=== PATIENT | female | born 1960 | race Caucasian/White ===

== ENCOUNTER 2020-12-02 15:37 | Inpatient (IN) | payer OTHER ==
[~2020-12-02] VITALS: Ht 165.1 cm; Wt 75.7 kg
[2020-12-02] VITALS (7 sets, daily range): BP systolic 98–150; BP diastolic 67–80
--- NOTE | 2020-12-02 16:10 | NUR ---
STARTED IV LINE, BLOOD SPECIMEN COLLECTED AND SENT TO THE LAB
[2020-12-02] MEDS ORDERED: CHOL12502 GT (16:17)
[2020-12-02] MEDS ORDERED: ASPI-1169 GT (16:17)
[2020-12-02] MEDS ORDERED: ACET325T53 GT (16:17)
[2020-12-02] MEDS ORDERED: SEVE800T8 GT (16:17)
[2020-12-02] MEDS ORDERED: CALC667C6 GT (16:17)
[2020-12-02] MEDS ORDERED: INSU100V39 SQ (16:17)
[2020-12-02] MEDS ORDERED: ONDA4TAB5 GT (16:17)
[2020-12-02] MEDS ORDERED: INSU100I26 SQ (16:17)
[2020-12-02] MEDS ORDERED: DOCU-141 GT (16:17)
[2020-12-02] MEDS ORDERED: LEVO25TA9 GT (16:17)
[2020-12-02] MEDS ORDERED: NUT.237L67 GT (16:17)
[2020-12-02] MEDS ORDERED: CHLO473M3 MM (16:17)
[2020-12-02] MEDS ORDERED: TAMO20TA4 GT (16:17)
[2020-12-02] MEDS ORDERED: ATOR40TA GT (16:17)
[2020-12-02] MEDS ORDERED: MULT-188 GT (16:17)
[2020-12-02] MEDS ORDERED: IPRA3AMP23 IH (16:17)
[2020-12-02] MEDS ORDERED: LORA-259 GT (16:17)
[2020-12-02] MEDS ORDERED: AURYXIA GT (16:17)
[2020-12-02] MEDS ORDERED: APIX2.5T GT (16:17)
[2020-12-02] MEDS ORDERED: MIDO10TA GT (16:17)
[2020-12-02 16:30] LABS: BASOPHILS # (AUTO) 0.1 K/uL (0.0-0.2); BASOPHILS % (AUTO) 0.5 % (0.0-2.0); HEMATOCRIT 24 % (33-45); HEMOGLOBIN 7.5 g/dL (11.5-14.8); LYMPHOCYTES # (AUTO) 1.5 K/uL (0.8-4.8); LYMPHOCYTES % (AUTO) 10.8 % (20.0-44.0); MEAN CORPUSCULAR HGB CONC 32 g/dl (31.0-36.0); MEAN CORPUSCULAR VOLUME 90 fL (82-100); MONOCYTES # (AUTO) 1.3 K/uL (0.1-1.30); MONOCYTES % (AUTO) 9.2 % (2.0-12.0); NEUTROPHILS # (AUTO) 10.9 K/uL (1.8-8.9); NEUTROPHILS % (AUTO) 77.5 % (43.0-81.0); PLATELET COUNT (AUTO) 278 K/uL (150-450); RED BLOOD CELL COUNT(AUTO) 2.62 MIL/uL (4.0-5.2); WHITE BLOOD COUNT (AUTO) 14.1 K/uL (4.3-11.0)
[2020-12-02 16:36] LABS: CALCIUM, SERUM 9.7 mg/dL (8.5-10.1); CARBON DIOXIDE 22 mmol/L (21-32); CHLORIDE 88 mmol/L (98-107); CREATININE 6.3 mg/dL (0.6-1.3); GLUCOSE 116 mg/dL (74-106); POTASSIUM 5.8 mmol/L (3.5-5.1); SODIUM SERUM 122 mmol/L (136-145); UREA NITROGEN, BLOOD 75 mg/dL (7-18)
[2020-12-02 16:43] LABS: ALANINE AMINOTRANSFERASE 13 U/L (12-78); ALBUMIN 2.7 g/dL (3.4-5.0); ALKALINE PHOSPHATASE 177 U/L (46-116); ASPARTATE AMINOTRANSFERASE 29 U/L (15-37); BILIRUBIN,DIRECT 0.7 mg/dL (0.0-0.2); BILIRUBIN,TOTAL 0.9 mg/dL (0.2-1.0); TOTAL PROTEIN, SERUM 7.5 g/dL (6.4-8.2)
--- NOTE | 2020-12-02 16:57 | NUR ---
CLAMPS REMOVED FROM LEFT UPPER ARM AV SHUNT. NO BLEEDING NOTED.
--- NOTE | 2020-12-02 17:02 | NUR ---
ROOM 101
--- NOTE | 2020-12-02 17:23 | NUR ---
COVID SWAB DONE AND SENT TO THE LAB
[2020-12-02] MEDS ORDERED: MAG HYDROX/AL HYDROX/SIMETH 30 ML UDC PO PRN (17:30)
[2020-12-02] MEDS ORDERED: ACETAMINOPHEN 325 MG TABLET PO PRN (17:30)
[2020-12-02] MEDS ORDERED: ONDANSETRON HCL/PF 4 MG/2 ML VIAL IVP PRN (17:30)
[2020-12-02] MEDS ORDERED: Z GUARD REMEDY 2 OZ OINT TP PRN (17:30)
--- NOTE | 2020-12-02 17:40 | NUR ---
RT PT RECEIVED TRACH'D (SHILEY 6XLT) ON 5LPM VIA T-MASK. PT AWAKE. SUCTIONED SMALL AMOUNTS OF BLOOD-TINGED SECRETIONS. SPO2 100%, RR 79.
[2020-12-02 17:51] LABS: BAND % (MANUAL) 2 % (0.0-5.0); LYMPHOCYTES % (MANUAL) 12 % (16-48); MONOCYTES % (MANUAL) 5 % (0-11.0); NEUTROPHILS % (MANUAL) 81 (42-76)
[2020-12-02] MEDS ORDERED: VANCOMYCIN 1 GM in IV D5W 250ml IV ONE (18:00)
[2020-12-02] MEDS ORDERED: INSULIN GLARGINE,BASAGLAR 100 UNIT/ML INSULN.PEN SQ SCH (18:00)
[2020-12-02] MEDS ORDERED: EPOETIN ALFA-EPBX 10,000 UNIT/ML VIAL IV ONE (18:00)
--- NOTE | 2020-12-02 18:21 | NUR ---
TRANSFERRED PT TO [facility] 101 PER PROTOCOL. REPORT GIVEN TO JIM PEMBERTON. VS STABLE.
--- NOTE | 2020-12-02 18:29 | NUR ---
RN NOTE- 60 Y/O FEMALE PT BROUGHT IN THROUGH ED FOR BLEEDING LORELEI AV SHUNT. BLEEDING STOPPED IN ED, LABS DONE, PT FOR HD, DR ROBLES FOLLOWING. DR PRAKASH TO ADMIT. PT O2 SATS AT 97% ON 4LPM VIA TRACH CUFF. PT W YANIQUE MIDLINE. PT CLEANED, REPOSITIONED, MADE COMFORTABLE, REPORT TAKEN, WILL PASS ON TO NOC SHIFT FOR ADMISSION.
[2020-12-02] MEDS ORDERED: DEXTROSE 50%-WATER 50 ML DISP.SYRIN IV PRN (19:00)
--- NOTE | 2020-12-02 19:30 | NUR ---
RN NOTE RECEIVED PT SLEEPING, AROUSES EASILY. ABLE TO MOUTH WORDS AND WRITE CONCERNS. WITH TRACH,MILD BLEEDING NOTED. CONNECTED TO COOL AEROSOL. DENIES SOB. PT STARTING HEMODIALYSIS, HD NURSE AT BEDSIDE. NO SIGNS OF DISTRESS NOTED. ADMITTED WITH DX OF MALFUNCTION HD SITE. PT WITH AV FISTULA, WORKING AT THIS TIME. NO BLEEDING ON SITE. ALL SAFETY MEASURES IN PLACE. WILL CONTINUE TO MONITOR.
--- NOTE | 2020-12-02 20:41 | NUR ---
RN NOTE PT CONTINUE ON HD. BLOOD TRANSFUSION STARTED WITH HD. NO SIGNS OF REACTIONS NOTED. WILL CONTINUE TO MONITOR.
--- NOTE | 2020-12-02 21:17 | NUR ---
RN NOTE 1ST BAG OF PRBC DONE WITH HD. NO SIGNS OF DISTRESS, NO SIGNS OF REACTIONS NOTED. PT AWAKE ALERT. 2ND UNIT OF PRBC STARTED WITH HD. BEING GIVEN BY HD NURSE.
--- NOTE | 2020-12-02 22:15 | NUR ---
RN NOTE BLOOD TRANSFUSION WERE DONE, GIVEN BY HD NURSE WHILE ON HD. NO SIGNS OF REACTION NOTED. HD DONE WELL. REMOVED 2400ML. PT TOLERATED WELL. VS WNL. WILL CONTINUE TO MONITOR.
[2020-12-02] MEDS: ATORVASTATIN 40 MG TABLET GT SCH (23:20)
[2020-12-02] MEDS: INSULIN GLARGINE, 100 UNIT/ML CARTRIDGE SQ SCH (23:45)
[2020-12-02] MEDS: BLOOD SUGAR DIAGNOSTIC 1 EACH STRIP IN SCH (23:48)
[2020-12-02] MEDS: NEPRO 1,000 ML BOTTLE GT PRN (23:54)
[2020-12-02] MEDS: CEFTRIAXONE 1 G in IV D5W 50 ML IV SCH (23:54)
[2020-12-03] VITALS (10 sets, daily range): BP systolic 94–143; BP diastolic 58–84
[2020-12-03] MEDS: LORAZEPAM 1 MG TABLET GT PRN ×2 (02:31→23:00)
--- NOTE | 2020-12-03 04:22 | NUR ---
RN NOTE GT FEEDING RUNNING AT 20ML/HR, NOTED WITH 180 ML RESIDUALS. HELD FEEDING. WILL CONTINUE TO MONITOR.
[2020-12-03] MEDS: INSULIN REGULAR, HUMAN 100 UNIT/ML 3 ML VIAL SQ PRN ×2 (05:57→23:10)
[2020-12-03] MEDS: BLOOD SUGAR DIAGNOSTIC 1 EACH STRIP IN SCH ×4 (05:57→23:08)
--- NOTE | 2020-12-03 06:01 | NUR ---
RN NOTE PT STILL NOTED WITH BLEEDING FROM THE TRACH. POST PRODUCTION ASSISTANT JULIA NOTIFIED, ORDERED TO HOLD ELIQUIS AND ASPIRIN. NO BLEEDING NOTED FROM AV SHUNT, DRESSING CLEAN DRY AND INTACT. GT RESIDUALS DECREASED TO 30ML. RESTARTED GT FEEDING AT 20ML/HR. FSBS AT 79. NO INSULIN COVERAGE GIVEN. WILL CONTINUE TO MONITOR.
[2020-12-03 06:49] LABS: BASOPHILS % (AUTO) 0.3 % (0.0-2.0); EOSINOPHILS % (AUTO) 1.1 % (0.0-6.0); HEMATOCRIT 27 % (33-45); HEMOGLOBIN 8.9 g/dL (11.5-14.8); LYMPHOCYTES # (AUTO) 0.9 K/uL (0.8-4.8); LYMPHOCYTES % (AUTO) 5.5 % (20.0-44.0); MEAN CORPUSCULAR HGB CONC 33 g/dl (31.0-36.0); MEAN CORPUSCULAR VOLUME 89 fL (82-100); MONOCYTES % (AUTO) 6.5 % (2.0-12.0); NEUTROPHILS # (AUTO) 13.6 K/uL (1.8-8.9); NEUTROPHILS % (AUTO) 86.6 % (43.0-81.0); PLATELET COUNT (AUTO) 243 K/uL (150-450); RED BLOOD CELL COUNT(AUTO) 3.03 MIL/uL (4.0-5.2); WHITE BLOOD COUNT (AUTO) 15.7 K/uL (4.3-11.0)
[2020-12-03] MEDS ORDERED: VANCOMYCIN POST DIALYSIS 500MG IV PRN (07:00)
[2020-12-03 07:16] LABS: ALBUMIN 2.9 g/dL (3.4-5.0); CALCIUM, SERUM 9.9 mg/dL (8.5-10.1); CREATININE 4.4 mg/dL (0.6-1.3); MAGNESIUM 2.4 mg/dL (1.8-2.4); PHOSPHORUS 3.5 mg/dL (2.5-4.9); POTASSIUM 4.5 mmol/L (3.5-5.1); TOTAL PROTEIN, SERUM 7.5 g/dL (6.4-8.2)
[2020-12-03] MEDS ORDERED: APIXABAN 2.5 MG TABLET GT SCH (09:00)
[2020-12-03] MEDS ORDERED: ASPIRIN 81 MG TAB.CHEW GT SCH (09:00)
[2020-12-03] MEDS: TAMOXIFEN CITRATE 10 MG TABLET GT SCH (09:04)
[2020-12-03] MEDS: LEVOTHYROXINE SODIUM 25 MCG TABLET GT SCH (09:04)
[2020-12-03] MEDS: DOCUSATE SODIUM 100 MG CAPSULE PO SCH (09:04)
--- NOTE | 2020-12-03 09:12 | NUR ---
WOUND CARE CONSULT: REVIEWED CHART, NURSING DOCUMENTATION AND PHOTOS WHICH INDICATE MULTIPLE WOUNDS, PRESENT ON ADMISSION. RECOMMENDATIONS MADE FOR SKIN PROTECTION. DISCUSSED WITH NURSING STAFF. SURGICAL AND DPM CONSULTS CALLED TO DR MON[place] AND DR HAMPAPUR. ESTEVEZ IN AGREEMENT WITH PLAN OF CARE.
--- NOTE | 2020-12-03 10:00 | NUR ---
RN NOTE PER DR. RYAN ORDERED 2 UNITS FFP. VERBAL CONSENT GIVEN FORM ALEXANDER. TYPE AND SCREEN AND FFP ORDERED.
[2020-12-03] MEDS: HYDROCODONE/APAP 5/325MG TABLET GT PRN ×2 (13:51→21:14)
--- NOTE | 2020-12-03 16:40 | NUR ---
RN NOTE BEGAN FFP TRANSFUSION. 2 RN VERIFIED. VS WNL.
[2020-12-03] MEDS: SEVELAMER CARBONATE 800 MG POWD.PACK GT SCH (18:58)
--- NOTE | 2020-12-03 19:30 | NUR ---
RN OPENING NOTES: RECEIVED PT A/OX4 GUAMANIAN SPEAKING ( MOUTH WORDS &WRITE CONCERNS) IN BED IN NO S/SX OF ACUTE DISTRESS AT THIS TIME. NO SOB NOTED. PATIENT'S BREATHING IS EVEN AND UNLABORED. PATIENT IS ON 4L OF OXYGEN VIA T-PIECE; TOLERATING WELL. NOTED BLEEDING FROM THE TRACH ; VISIBLE UPON SUCTION; MD AWARE. PATIENT ON MS STATUS. PT HAS G TUBE FLUSHING AND PATENT; SITE CLEAN DRY AND INTACT; 10CC RESIDUAL NOTED AT THIS TIME; CONNECTED TO GTUBE FEEDING OF NEPRO @40CC/[id number] ;TOLERATES WELL. NOTED IV SITE ON R UA MIDLINE #18 AND R AC#20 ; BOTH PATENT, INTACT AND FLUSHING WELL; NO S/S OF INFECTION OR INFILTRATION. PT ALSO HAS L ARM AV SHUNT & L UPPER CW PORTACATH SECURED AND INTACT NO SIGNS OF BLEEDING AND INFECTION. SAFETY MEASURES HAVE BEEN PROVIDED AND IMPLEMENTED. PATIENT BED ALARM IS ON. HEAD OF BED ELEVATED. BED IS LOCKED, IN LOWEST POSITION AND SIDE RAILS UP. CALL LIGHT WITHIN REACH OF THE PATIENT. APPLICABLE ISOLATION PRECAUTIONS IN PLACE. WILL CONTINUE TO MONITOR AND REASSESS FOR ANY CHANGES AND WILL CARRY OUT ANY ONGOING AND ACTIVE MD ORDER.
[2020-12-03] MEDS: CEFTRIAXONE 1 G in IV D5W 50 ML IV SCH (19:32)
--- NOTE | 2020-12-03 20:40 | NUR ---
RN NOTES STARTED 2ND BAG OF PLASMA ORDERED. INITIAL VITAL SIGNS TAKEN AND NOTED TO BE WNL. INFUSED PER PROTOCOL. WILL CONTINUE TO MONITOR AND ASSESS FOR ANY TRANSFUSION REACTION AND ADDRESS ACCORDINGLY. [employer] II ASSEMBLER WELL AWARE.
[2020-12-03] MEDS: CEFEPIME 1 GM in IV D5W 50 ML IV SCH (21:13)
[2020-12-03] MEDS: ATORVASTATIN 40 MG TABLET GT SCH (21:14)
--- NOTE | 2020-12-03 23:00 | NUR ---
RN NOTES ENDED PLASMATRANSFUSION @2300, VITAL SIGNS REMAINED WNL, NO TRANSFUSION REACTION NOTED. WILL CONTINUE TO MONITOR AND ASSESS FOR ANY TRANSFUSION REACTION POST PROCEDURE. PISTON MAKER MADE AWARE.
[2020-12-03] MEDS: INSULIN GLARGINE, 100 UNIT/ML CARTRIDGE SQ SCH (23:11)
--- NOTE | 2020-12-04 | NUR ---
RN NOTES PATIENT REMAINED TO BE IN NO SIGNS OF ACUTE RESPIRATORY DISTRESS 02 SAT REMAINS >95% EARTH MOVING MACHINE OPERATOR MADE AWARE. WILL CONTINUE TO MONITOR AND REASSESS FOR ANY CHANGES THROUGHOUT THE SHIFT.
[2020-12-04 04:00] VITALS: BP 140/82
--- NOTE | 2020-12-04 04:00 | NUR ---
RN NOTES PATIENT REMAINED TO BE IN NO SIGNS OF ACUTE RESPIRATORY DISTRESS , VITAL SIGNS STABLE AT THIS TIME. REGULAR TURNING AND REPOSITIONING DONE Q2H AND SUCTIONING RENDERED. AM PATIENT CARE DONE. WILL CONTINUE TO MONITOR AND REASSESS FOR ANY CHANGES THROUGHOUT THE SHIFT.
--- NOTE | 2020-12-04 05:15 | NUR ---
PATIENT RECEIVED ON 4L T-PIECE, TOLERATING WITH NO DISTRESS/SOB NOTED. SUCTIONED WITH ICED LAVAGE FOR PRODUCTIVE, BLOODY SECRETIONS. AMBU BAG AT BEDSIDE. CONTINUE TO MONITOR PATIENT'S STATUS. Addendum: 12/04/20 at 0517 by JARVIS STONER RT Amended: Links added.
[2020-12-04] MEDS: BLOOD SUGAR DIAGNOSTIC 1 EACH STRIP IN SCH ×4 (05:21→23:14)
[2020-12-04] MEDS: INSULIN REGULAR, HUMAN 100 UNIT/ML 3 ML VIAL SQ PRN ×3 (05:25→23:16)
[2020-12-04] MEDS: HYDROCODONE/APAP 5/325MG TABLET GT PRN (06:05)
[2020-12-04 06:23] LABS: BASOPHILS % (AUTO) 0.4 % (0.0-2.0); EOSINOPHILS % (AUTO) 1.4 % (0.0-6.0); HEMATOCRIT 27 % (33-45); HEMOGLOBIN 8.8 g/dL (11.5-14.8); LYMPHOCYTES # (AUTO) 1.1 K/uL (0.8-4.8); LYMPHOCYTES % (AUTO) 8.9 % (20.0-44.0); MEAN CORPUSCULAR HGB CONC 32 g/dl (31.0-36.0); MEAN CORPUSCULAR VOLUME 90 fL (82-100); MONOCYTES # (AUTO) 1.1 K/uL (0.1-1.30); MONOCYTES % (AUTO) 8.8 % (2.0-12.0); NEUTROPHILS # (AUTO) 9.9 K/uL (1.8-8.9); NEUTROPHILS % (AUTO) 80.5 % (43.0-81.0); PLATELET COUNT (AUTO) 237 K/uL (150-450); RED BLOOD CELL COUNT(AUTO) 3.01 MIL/uL (4.0-5.2); WHITE BLOOD COUNT (AUTO) 12.3 K/uL (4.3-11.0)
--- NOTE | 2020-12-04 06:46 | NUR ---
RN CLOSING NOTE: PATIENT REMAINS IN ROOM IN NO SIGNS OF RESPIRATORY DISTRESS, PATIENT STILL ON 4L OF 02 VIA T-PIECE ;TOLERATING WELL SATURATING @ >95% SP02. SAFETY MEASURES IMPLEMENTED, BED IN LOWEST POSITION, LOCKED, SIDE RAILS UP, CALL LIGHT WITHIN REACH. ALL NEEDS AND ORDERS ADDRESSED DURING THE SHIFT. IV ACCESS MAINTAINED INTACT, SECURED AND FLUSHING WELL. ALL DUE MEDS GIVEN ORDERED & SCHEDULED ; PATIENT TOLERATED WELL. PATIENT KEPT CLEAN AND COMFORTABLE WITHIN THE SHIFT. PATIENT ENDORSED TO INCOMING SHIFT RN WITH STABLE VITAL SIGN AND FOR CONTINUITY OF CARE.
[2020-12-04 06:54] LABS: CREATININE 5.1 mg/dL (0.6-1.3); MAGNESIUM 2.6 mg/dL (1.8-2.4); PHOSPHORUS 4.3 mg/dL (2.5-4.9); POTASSIUM 4.6 mmol/L (3.5-5.1)
[2020-12-04 08:00] VITALS: BP 140/58
--- NOTE | 2020-12-04 08:04 | NUR ---
RT Pt suctioned small thick blood tinged secretions. Suction lopez and inner cannula changed. No SOB or respiratory distress noted. Addendum: 12/04/20 at 0856 by DOMINGO LEÓN RT Amended: Links added.
[2020-12-04] MEDS: LEVOTHYROXINE SODIUM 25 MCG TABLET GT SCH (08:22)
[2020-12-04] MEDS: TAMOXIFEN CITRATE 10 MG TABLET GT SCH (08:22)
[2020-12-04] MEDS: DOCUSATE SODIUM 100 MG CAPSULE PO SCH (08:22)
[2020-12-04] MEDS: SEVELAMER CARBONATE 800 MG POWD.PACK GT SCH ×3 (08:22→18:19)
[2020-12-04] MEDS: THERAHONEY GEL 1.5 OZ TUBE TP SCH (09:00)
[2020-12-04 10:58] LABS: EOSINOPHILS % (MANUAL) 2 % (0-4); LYMPHOCYTES % (MANUAL) 9 % (16-48); MONOCYTES % (MANUAL) 9 % (0-11.0); NEUTROPHILS % (MANUAL) 80 (42-76)
--- NOTE | 2020-12-04 11:05 | NUR ---
RT Pt suctioned small thick blood tinged secretions. No SOB or respiratory distress noted. Addendum: 12/04/20 at 1601 by DOMINGO LEÓN RT Amended: Links added.
--- NOTE | 2020-12-04 11:12 | NUR ---
RN NOTE PT WAS GETTING DIALYSIS, GT BEGAN TO BLEED. EST BLOOD LOSS. 50-100CC. PRESSURE AND GAUZE ARE PLACED. MD CUNNINGHAM NOTIFIED AND REQUESTED HEMOGRAM H/H. ORDER PLACED. PATIENT ALERT WITHOUT AND LABORED BREATHING. SBP >100. WILL AWAIT H/H RESULTS.
[2020-12-04 11:36] LABS: HEMATOCRIT 27 % (33-45); HEMOGLOBIN 8.9 g/dL (11.5-14.8); MEAN CORPUSCULAR HGB CONC 33 g/dl (31.0-36.0); MEAN CORPUSCULAR VOLUME 89 fL (82-100); PLATELET COUNT (AUTO) 233 K/uL (150-450); RED BLOOD CELL COUNT(AUTO) 3.06 MIL/uL (4.0-5.2); WHITE BLOOD COUNT (AUTO) 11.8 K/uL (4.3-11.0)
--- NOTE | 2020-12-04 11:53 | NUR ---
RN NOTE PT BLEEDING AGAIN. NOTIFIED MD PRAKASH. MD INSTRUCTED TO INVOLVE SURGEON.
--- NOTE | 2020-12-04 12:27 | NUR ---
RN NOTES DR TEJADA THE SURGEON SUTURED PTS GT SITE. PICTURE WAS TAKEN. BACTOBAN ORDERED. WILL ASSESS SUTURE SITE FREQUENTLY. TUBE FEEDING STOPPED. NO ACTIVE BLEEDING.
[2020-12-04] MEDS ORDERED: EPOETIN ALFA-EPBX 10,000 UNIT/ML VIAL IV ONE (13:00)
[2020-12-04] MEDS: MUPIROCIN OINT 2% 22 GM TUBE TP SCH (15:57)
[2020-12-04 16:00] VITALS: BP 130/93
--- NOTE | 2020-12-04 18:37 | NUR ---
RN CLOSING NOTES PT AWAKE AND SAT >95% ON 4L. PT NOT BLEEDING FROM TRACH OR GT SITE. TUBE FEEDING RUNNING @45CC. VS WNL. WILL CONTINUE TO MONITOR Addendum: 12/04/20 at 1854 by POPEYE CARRASCO RN HYDROMORPHONE NOT SCANNED DUE TO FORGETTING. WAS GIVING PRIOR TO SUTURING OF GT TO COMBAT PAIN. CHARGE NOTIFIED AND WILL BE ENDORSED. Emir FLEMING IV REMOVED.
[2020-12-04] MEDS: NEPRO 1,000 ML BOTTLE GT PRN (19:20)
--- NOTE | 2020-12-04 19:35 | NUR ---
RN OPENING NOTES: RECEIVED PT A/OX4 MOUTH WORDS &WRITE CONCERNS, IN BED IN NO S/SX OF ACUTE DISTRESS AT THIS TIME. NO SOB NOTED. PATIENT'S BREATHING IS EVEN AND UNLABORED. PATIENT IS ON 4L OF OXYGEN VIA T-PIECE; TOLERATING WELL.NO NOTED BLEEDING FROM THE TRACH AT THIS TIME. PATIENT ON MS STATUS. PT HAS G TUBE FLUSHING AND PATENT; SITE CLEAN DRY AND INTACT; 5CC RESIDUAL NOTED AT THIS TIME; CONNECTED TO GTUBE FEEDING OF NEPRO @40CC/[id number] ;TOLERATES WELL. NOTED IV SITE ON R UA MIDLINE #18 AND R AC#20 ; BOTH PATENT, INTACT AND FLUSHING WELL; NO S/S OF INFECTION OR INFILTRATION. PT ALSO HAS L ARM AV SHUNT & L UPPER CW PORTACATH SECURED AND INTACT NO SIGNS OF BLEEDING AND INFECTION. SAFETY MEASURES HAVE BEEN PROVIDED AND IMPLEMENTED. PATIENT BED ALARM IS ON. HEAD OF BED ELEVATED. BED IS LOCKED, IN LOWEST POSITION AND SIDE RAILS UP. CALL LIGHT WITHIN REACH OF THE PATIENT. APPLICABLE ISOLATION PRECAUTIONS IN PLACE. WILL CONTINUE TO MONITOR AND REASSESS FOR ANY CHANGES AND WILL CARRY OUT ANY ONGOING AND ACTIVE MD ORDER.
[2020-12-04 20:00] VITALS: BP 90/60
[2020-12-04] MEDS: CEFEPIME 1 GM in IV D5W 50 ML IV SCH (21:27)
[2020-12-04] MEDS: ATORVASTATIN 40 MG TABLET GT SCH (21:27)
[2020-12-04] MEDS: INSULIN GLARGINE, 100 UNIT/ML CARTRIDGE SQ SCH (23:16)
--- NOTE | 2020-12-05 | NUR ---
RN NOTES PATIENT REMAINED TO BE IN NO SIGNS OF ACUTE RESPIRATORY DISTRESS , VITAL SIGNS WNL AT THIS TIME. TRESTLE MAINTERNANCE LABORER MADE AWARE. WILL CONTINUE TO MONITOR AND REASSESS FOR ANY CHANGES THROUGHOUT THE SHIFT.
[2020-12-05] MEDS: MUPIROCIN OINT 2% 22 GM TUBE TP SCH ×2 (00:34→13:16)
[2020-12-05] MEDS: LORAZEPAM 1 MG TABLET GT PRN ×2 (01:17→15:43)
[2020-12-05] MEDS: HYDROCODONE/APAP 5/325MG TABLET GT PRN ×2 (02:44→15:57)
[2020-12-05 04:00] VITALS: BP 108/57
--- NOTE | 2020-12-05 04:00 | NUR ---
RN NOTES PATIENT REMAINED TO BE IN NO SIGNS OF ACUTE RESPIRATORY DISTRESS , VITAL SIGNS STABLE AT THIS TIME. REGULAR TURNING AND REPOSITIONING DONE Q2H AND SUCTIONING RENDERED. AM PATIENT CARE RENDERED. WILL CONTINUE TO MONITOR AND REASSESS FOR ANY CHANGES THROUGHOUT THE SHIFT.
[2020-12-05] MEDS: BLOOD SUGAR DIAGNOSTIC 1 EACH STRIP IN SCH ×3 (05:32→18:07)
[2020-12-05] MEDS: INSULIN REGULAR, HUMAN 100 UNIT/ML 3 ML VIAL SQ PRN ×3 (05:33→18:22)
--- NOTE | 2020-12-05 07:35 | NUR ---
RT Pt suctioned small thick blood tinged secretions. Suction lopez and inner cannula changed. No SOB or respiratory distress noted. Addendum: 12/05/20 at 0817 by DOMINGO LEÓN RT Amended: Links added.
--- NOTE | 2020-12-05 07:39 | NUR ---
MS/RN OPENING NOTE: RECEIVED PATIENT IN BED, NO SIGNS OF RESPIRATORY DISTRESS, PATIENT ON 4L OF 02 VIA T-PIECE;TOLERATING WELL. ALL NEEDS AND ORDERS ADDRESSED DURING THE SHIFT. IV ACCESS ON RIGHT AC, RIGHT UPPER MIDLINE ALL INTACT, SECURED AND FLUSHING WELL. SAFETY MEASURES IMPLEMENTED, BED IN LOWEST POSITION, LOCKED, SIDE RAILS UP, CALL LIGHT WITHIN REACH. WILL CONTINUE TO MONITOR PATIENT.
[2020-12-05] MEDS: SEVELAMER CARBONATE 800 MG POWD.PACK GT SCH ×3 (08:50→17:03)
[2020-12-05] MEDS: LEVOTHYROXINE SODIUM 25 MCG TABLET GT SCH (08:51)
[2020-12-05] MEDS: THERAHONEY GEL 1.5 OZ TUBE TP SCH (08:51)
[2020-12-05] MEDS: DOCUSATE SODIUM LIQ 100 MG/10 ML UDC GT SCH (08:51)
[2020-12-05] MEDS: TAMOXIFEN CITRATE 10 MG TABLET GT SCH (08:51)
[2020-12-05] MEDS ORDERED: ACETAMINOPHEN 650 MG/20.3 ML UDC GT PRN (09:00)
[2020-12-05 10:18] LABS: BASOPHILS % (AUTO) 0.5 % (0.0-2.0); EOSINOPHILS % (AUTO) 2.5 % (0.0-6.0); HEMATOCRIT 23 % (33-45); HEMOGLOBIN 7.4 g/dL (11.5-14.8); LYMPHOCYTES # (AUTO) 1.1 K/uL (0.8-4.8); LYMPHOCYTES % (AUTO) 10.2 % (20.0-44.0); MEAN CORPUSCULAR HGB CONC 32 g/dl (31.0-36.0); MEAN CORPUSCULAR VOLUME 92 fL (82-100); MONOCYTES # (AUTO) 1.3 K/uL (0.1-1.30); NEUTROPHILS # (AUTO) 7.8 K/uL (1.8-8.9); NEUTROPHILS % (AUTO) 74.8 % (43.0-81.0); PLATELET COUNT (AUTO) 189 K/uL (150-450); RED BLOOD CELL COUNT(AUTO) 2.47 MIL/uL (4.0-5.2); WHITE BLOOD COUNT (AUTO) 10.4 K/uL (4.3-11.0)
--- NOTE | 2020-12-05 11:13 | NUR ---
RT Pt suctioned small thick blood tinged secretions. No SOB or respiratory distress noted. Addendum: 12/05/20 at 1113 by DOMINGO LEÓN RT Amended: Links added.
[2020-12-05 12:08] VITALS: BP 90/61
--- NOTE | 2020-12-05 15:35 | NUR ---
RT Pt suctioned small thick blood tinged secretions. No SOB or respiratory distress noted. Addendum: 12/05/20 at 1627 by DOMINGO LEÓN RT Amended: Links added.
[2020-12-05] MEDS ORDERED: NEPRO 1,000 ML BOTTLE GT PRN (16:30)
[2020-12-05] MEDS: NEPRO 1,000 ML BOTTLE GT PRN (17:02)
--- NOTE | 2020-12-05 19:03 | NUR ---
MS/RN CLOSING NOTE: PATIENT IN BED, NO SIGNS OF RESPIRATORY DISTRESS, PATIENT ON 4L OF 02 VIA T-PIECE;TOLERATING WELL. ALL NEEDS AND ORDERS ADDRESSED DURING THE SHIFT. IV ACCESS ON RIGHT AC, RIGHT UPPER MIDLINE ALL INTACT, SECURED AND FLUSHING WELL. SAFETY MEASURES IMPLEMENTED, BED IN LOWEST POSITION, LOCKED, SIDE RAILS UP, CALL LIGHT WITHIN REACH. WILL ENDORSE TO THE NEXT SHIFT FOR JOSE
[2020-12-05 20:00] VITALS: BP 114/71
[2020-12-05] MEDS: CEFEPIME 1 GM in IV D5W 50 ML IV SCH (20:01)
[2020-12-05] MEDS: ATORVASTATIN 40 MG TABLET GT SCH (21:53)
[2020-12-05] MEDS: INSULIN GLARGINE, 100 UNIT/ML CARTRIDGE SQ SCH (21:58)
[2020-12-06] MEDS: BLOOD SUGAR DIAGNOSTIC 1 EACH STRIP IN SCH ×5 (00:02→23:34)
[2020-12-06] MEDS: INSULIN REGULAR, HUMAN 100 UNIT/ML 3 ML VIAL SQ PRN ×5 (00:24→23:26)
[2020-12-06] MEDS: MUPIROCIN OINT 2% 22 GM TUBE TP SCH ×2 (01:32→12:33)
[2020-12-06 04:00] VITALS: BP 132/68
--- NOTE | 2020-12-06 06:17 | NUR ---
RN NOTE PATIENT NOTED WITH BLEEDING FROM G-TUBE SITE. PRESSURE APPLIED ON SITE. TUBE FEEDING WITH MINIMAL RESIDUAL. NOTIFIED DR. MENDOZA AT NURSING STATION. ORDERED TO HOLD FEEDING FOR 1 HOUR AND CONTINUE TO MONITOR. WILL ENDORSE ACCORDINGLY. CALL LIGHT WITHIN REACH.
--- NOTE | 2020-12-06 06:54 | NUR ---
RN NOTE PATIENTS VITAL SIGNS REMAINED STABLE DURING SHIFT. PATIENT AOX4. BREATHING EVEN AND UNLABORED. NOTED WITH TRACH T-PIECE ONE 4L/MIN. TOLERATING WELL AT 100 PERCENT O2 SATURATION. WOUND TREATMENTS DONE. KEPT CLEAN AND DRY. BED LOW, IN LOCKED POSITION. CALL LIGHT WITHIN REACH.
--- NOTE | 2020-12-06 07:30 | NUR ---
RN NOTE PATIENT ALERT AND ORIENTED X4 ABLE TO VERBALIZE NEEDS, ON O2 VIA NC T-PIECE WITH 4LPM TOLERATING WELL O2 SAT OF 98%, MONITOR FOR S/S OF BLEEDING, RIGHT UPPER ARM MIDLINE NOTED, PATENT FLUSHING WELL, LEFT AV SHUNT NO BLEEDING NOTED. ON GT FEEDING NEPHRO @45CC/HR TOLERATING WELL NO RESIDUALS, BED WHEELS LOCK, SAFETY MEASURES OBSERVED, CALL LIGHT WITHIN REACH, WILL CONTINUE TO MONITOR.
[2020-12-06 08:38] LABS: BASOPHILS % (AUTO) 0.4 % (0.0-2.0); HEMATOCRIT 23 % (33-45); HEMOGLOBIN 7.2 g/dL (11.5-14.8); LYMPHOCYTES # (AUTO) 1.2 K/uL (0.8-4.8); LYMPHOCYTES % (AUTO) 11.2 % (20.0-44.0); MEAN CORPUSCULAR HGB CONC 32 g/dl (31.0-36.0); MEAN CORPUSCULAR VOLUME 91 fL (82-100); MONOCYTES # (AUTO) 1.1 K/uL (0.1-1.30); MONOCYTES % (AUTO) 10.8 % (2.0-12.0); NEUTROPHILS # (AUTO) 7.7 K/uL (1.8-8.9); NEUTROPHILS % (AUTO) 74.6 % (43.0-81.0); PLATELET COUNT (AUTO) 195 K/uL (150-450); RED BLOOD CELL COUNT(AUTO) 2.47 MIL/uL (4.0-5.2); WHITE BLOOD COUNT (AUTO) 10.3 K/uL (4.3-11.0)
[2020-12-06 08:39] LABS: CALCIUM, SERUM 9.9 mg/dL (8.5-10.1); CREATININE 4.8 mg/dL (0.6-1.3); POTASSIUM 4.7 mmol/L (3.5-5.1)
[2020-12-06] MEDS: LEVOTHYROXINE SODIUM 25 MCG TABLET GT SCH (09:14)
[2020-12-06] MEDS: SEVELAMER CARBONATE 800 MG POWD.PACK GT SCH ×3 (09:14→17:08)
[2020-12-06] MEDS: DOCUSATE SODIUM LIQ 100 MG/10 ML UDC GT SCH (09:14)
[2020-12-06] MEDS: TAMOXIFEN CITRATE 10 MG TABLET GT SCH (09:14)
[2020-12-06] MEDS: THERAHONEY GEL 1.5 OZ TUBE TP SCH (09:15)
--- NOTE | 2020-12-06 10:59 | NUR ---
RN NOTE PATIENT NA OF 128 AND HGB OF 7.[address] [facility] WILL CONTINUE TO MONITOR PATIENT FOR ANY JOSE.
[2020-12-06 12:00] VITALS: BP 127/61
[2020-12-06] MEDS: HYDROCODONE/APAP 5/325MG TABLET GT PRN (15:39)
--- NOTE | 2020-12-06 18:58 | NUR ---
RN NOTE PATIENT ALERT AND ORIENTED X4 ABLE TO VERBALIZE NEEDS, ON O2 VIA NC T-PIECE WITH 4LPM TOLERATING WELL O2 SAT OF 98%, MONITOR FOR S/S OF BLEEDING, RIGHT UPPER ARM MIDLINE NOTED, PATENT FLUSHING WELL, LEFT AV SHUNT NO BLEEDING NOTED. WOUND TREATMENT DONE ORDERED, PAIN MEDICATION GIVEN PRIOR TO WOUND TREATMENT, BLOOD SUGAR CHECK PER SLIDING SCALE INSULIN ADMINISTERED ORDERED, PERICARE DONE, MD NOTIFIED REGARDING PATIENT CURRENT CONDITION, ANURIC THROUGHOUT THE SHIFT. ON GT FEEDING NEPHRO @45CC/HR TOLERATING WELL NO RESIDUALS, BED WHEELS LOCK, SAFETY MEASURES OBSERVED, CALL LIGHT WITHIN REACH, WILL CONTINUE TO MONITOR. WILL ENDORSE TO NOC SHIFT
--- NOTE | 2020-12-06 19:42 | NUR ---
RN NOTE PATIENT IN BED RESTING ALERT AND ORIENTED X4. ON O2 VIA NC T-PIECE WITH 4LPM, O2 SAT 100%. DURING REPORT, PATIENT COMPLAINED OF MOD CHEST PAIN RADIATING TO ARM AND HANDS. PATIENT RECEIVED ROUTINE NORCO DURING DAY SHIFT. VITAL SIGNS REMAINS STABLE. DAY SHIFT NURSE ORDERED STAT EKG. CHARGE NURSE VIRGEN MADE AWARE. WILL CONTINUE TO MONITOR. G-TUBE RUNNING NEPRO @ 45ML/HR X24HRS, NO RESIDUAL NOTED. YANIQUE MIDLINE PATENT AND INTACT. HD SITE NOTED ON LEFT CW PORTACATH AND LORELEI AV SHUNT. BED LOCKED AND IN LOWEST POSITION. CALL LIGHT WITHIN REACH. ALL NEEDS ANTICIPATED.
[2020-12-06 20:00] VITALS: BP 138/72
--- NOTE | 2020-12-06 20:17 | NUR ---
RN NOTE PAGED [facility]DERJIT DUMONT REGARDING EKG RESULT, WAITING FOR REPLY BACK.
--- NOTE | 2020-12-06 20:50 | NUR ---
RN NOTE RELAYED EKG RESULT. RECEIVED NEW ORDER FROM INDERJIT DUMONT FOR NTG SL Q5 MIN X3 DOSES, NOTED AND CARRIED OUT. Addendum: 12/06/20 at 2339 by HUBERT PARSONS RN ADMINISTERED X1 DOSE FOR MODERATE CHEST PAIN, WILL CONTINUE TO MONITOR. Addendum: 12/06/20 at 2341 by HUBERT PARSONS RN NITRO NOT ADMINISTERED AT THIS TIME, UNVERIFIED BY PHARMACY
[2020-12-06] MEDS: NYSTATIN TOP POWDER 15 GM BOTTLE TP SCH (20:52)
[2020-12-06] MEDS: CEFEPIME 1 GM in IV D5W 50 ML IV SCH (20:53)
[2020-12-06] MEDS: ATORVASTATIN 40 MG TABLET GT SCH (21:09)
[2020-12-06] MEDS ORDERED: NITROGLYCERIN 0.4 MG/TAB BOTTLE SL PRN (21:30)
--- NOTE | 2020-12-06 21:49 | NUR ---
RN NOTE ADMINISTERED X1 DOSE FOR MODERATE CHEST PAIN, WILL CONTINUE TO MONITOR.
--- NOTE | 2020-12-06 22:23 | NUR ---
RN NOTE DENIES CHEST PAIN. PATIENT COMPLAINING OF MILD PAIN ON BILATERAL LOWER EXTREMITIES, REQUESTING FOR TYLENOL. ADMINISTERED ORDERED. WILL CONTINUE TO MONITOR.
[2020-12-06] MEDS: INSULIN GLARGINE, 100 UNIT/ML CARTRIDGE SQ SCH (23:24)
--- NOTE | 2020-12-07 00:08 | NUR ---
RN NOTE PATIENT STABLE. ENDORSED TO LEILA PEMBERTON FOR CONTINUATION OF CARE.
[2020-12-07] MEDS: MUPIROCIN OINT 2% 22 GM TUBE TP SCH ×2 (01:14→12:43)
[2020-12-07 04:00] VITALS: BP 148/73
[2020-12-07] MEDS: BLOOD SUGAR DIAGNOSTIC 1 EACH STRIP IN SCH ×2 (05:09→11:06)
--- NOTE | 2020-12-07 05:35 | NUR ---
RN NOTE BLOOD SUGAR LEVEL 122 AT THIS TIME.
[2020-12-07] MEDS: NEPRO 1,000 ML BOTTLE GT PRN (07:14)
[2020-12-07] MEDS: LEVOTHYROXINE SODIUM 25 MCG TABLET GT SCH (08:12)
[2020-12-07] MEDS: DOCUSATE SODIUM LIQ 100 MG/10 ML UDC GT SCH (08:12)
[2020-12-07] MEDS: SEVELAMER CARBONATE 800 MG POWD.PACK GT SCH ×2 (08:13→12:43)
[2020-12-07] MEDS: TAMOXIFEN CITRATE 10 MG TABLET GT SCH (08:13)
[2020-12-07] MEDS: THERAHONEY GEL 1.5 OZ TUBE TP SCH (09:25)
[2020-12-07] MEDS: NYSTATIN TOP POWDER 15 GM BOTTLE TP SCH ×2 (09:25→17:34)
[2020-12-07] MEDS: HYDROCODONE/APAP 5/325MG TABLET GT PRN (11:56)
[2020-12-07 12:00] VITALS: BP 123/64
[2020-12-07] MEDS ORDERED: NYST15PO3 TP (12:09)
[2020-12-07] MEDS ORDERED: Hydrocodone/Apap 5/325MG GT (12:09)
[2020-12-07] MEDS ORDERED: VANC1VIA34 XX (12:09)
[2020-12-07] MEDS ORDERED: COLL30OI TP (12:09)
[2020-12-07] MEDS ORDERED: CEFE1FRO IV (12:09)
[2020-12-07] MEDS ORDERED: MUPI22OI7 TP (12:09)
[2020-12-07] MEDS ORDERED: ALBUMIN 25% 12.5 GM/50 ML BOTTLE IV ONE ×2 (13:00→13:30)
[2020-12-07] MEDS ORDERED: VANCOMYCIN 1 GM in IV D5W 250 ML IV ONE (16:00)
--- NOTE | 2020-12-07 16:12 | NUR ---
wound culture specimen for r leg send to lab ,awaits result.
--- NOTE | 2020-12-07 17:35 | NUR ---
RN NOTE PT PICKED UP BY RESCUE TEAM AND SENT TO [facility]. EXPLAINED TO SHELTON THAT VANCO WAS NOT GIVEN DUE TO HD AND RESCUE TEAM CAME BEFORE I CAN ADMINISTER.
== END 2020-12-07 17:30 | DRG 180 ==
LOC: ER 15:44 → TELE1 17:52 → MEDSG1 22:12
PROVIDERS: ADMIT Internal Medicine; ATTEND Registered Nurse
PROC: 30233N1 Transfusion of Nonautologous Red Blood Cells into Peripheral Vein, Percutaneous Approach (ICD-10-PCS; 2020-12-02)
PROC: 5A1D70Z Performance of Urinary Filtration, Intermittent, Less than 6 Hours Per Day (ICD-10-PCS; 2020-12-02)
PROC: 30233K1 Transfusion of Nonautologous Frozen Plasma into Peripheral Vein, Percutaneous Approach (ICD-10-PCS; 2020-12-02)
PROC: 30233N1 Transfusion of Nonautologous Red Blood Cells into Peripheral Vein, Percutaneous Approach (ICD-10-PCS; 2020-12-02)
PROC: 05HA33Z Insertion of Infusion Device into Left Brachial Vein, Percutaneous Approach (ICD-10-PCS; 2020-12-02)
PROC: 0W3F0ZZ Control Bleeding in Abdominal Wall, Open Approach (ICD-10-PCS; principal; 2020-12-05)
PROC: 0JBQ0ZZ Excision of Right Foot Subcutaneous Tissue and Fascia, Open Approach (ICD-10-PCS; 2020-12-06)
DX: T82.838A Hemorrhage due to vascular prosthetic devices, implants and grafts, initial encounter (principal); I50.33 Acute on chronic diastolic (congestive) heart failure; L89.614 Pressure ulcer of right heel, stage 4; J96.10 Chronic respiratory failure, unspecified whether with hypoxia or hypercapnia; D68.9 Coagulation defect, unspecified; E11.22 Type 2 diabetes mellitus with diabetic chronic kidney disease; L89.156 Pressure-induced deep tissue damage of sacral region; K94.23 Gastrostomy malfunction; D62 Acute posthemorrhagic anemia; E87.1 Hypo-osmolality and hyponatremia; D63.8 Anemia in other chronic diseases classified elsewhere; J90 Pleural effusion, not elsewhere classified; N18.6 End stage renal disease; K94.21 Gastrostomy hemorrhage; I13.2 Hypertensive heart and chronic kidney disease with heart failure and with stage 5 chronic kidney disease, or end stage renal disease; Y83.8 Other surgical procedures as the cause of abnormal reaction of the patient, or of later complication, without mention of misadventure at the time of the procedure; E87.6 Hypokalemia; Y92.89 Other specified places as the place of occurrence of the external cause; Z99.2 Dependence on renal dialysis; Y71.2 Prosthetic and other implants, materials and accessory cardiovascular devices associated with adverse incidents; Z20.822 Contact with and (suspected) exposure to COVID-19; Z88.1 Allergy status to other antibiotic agents; Z88.0 Allergy status to penicillin; Z79.51 Long term (current) use of inhaled steroids; Z79.4 Long term (current) use of insulin; Z79.899 Other long term (current) drug therapy; Z79.82 Long term (current) use of aspirin; Z79.01 Long term (current) use of anticoagulants; E03.9 Hypothyroidism, unspecified; E87.5 Hyperkalemia; M20.41 Other hammer toe(s) (acquired), right foot; M20.42 Other hammer toe(s) (acquired), left foot; R13.10 Dysphagia, unspecified; Y83.2 Surgical operation with anastomosis, bypass or graft as the cause of abnormal reaction of the patient, or of later complication, without mention of misadventure at the time of the procedure; L30.4 Erythema intertrigo; L03.115 Cellulitis of right lower limb; X58.XXXA Exposure to other specified factors, initial encounter; Y92.9 Unspecified place or not applicable; S91.301A Unspecified open wound, right foot, initial encounter
CPT/HCPCS: 31720; 36415; 71045-TC; 80048-TC; 80053-TC; 80061-TC; 80076-TC; 80202-TC; 82962-TC; 83735-TC; 84100-TC; 84484-TC; 85025-TC; 85027-TC; 85730-TC; 86706; 86850-TC; 87070-TC; 87081-TC; 87186-TC; 87340; 90935-TC; 94760-TC; 94799-TC; A4217; A4623; A6253; A6403; A7526; G0378; J0692; J0696; J0885; J1815; J3370; J7030; J7050; J7060; P9016; P9017; P9047; U0003

== ENCOUNTER 2021-02-19 14:33 | Inpatient (IN) | payer OTHER ==
[~2021-02-19] VITALS: Ht 167.6 cm; Wt 93.9 kg
[~2021-02-19 14:33] MED LIST: ACET325T53 GT; APIX2.5T GT; ASPI-1169 GT; ATOR40TA GT; AURYXIA GT; CALC667C6 GT; CEFE1FRO IV; CHLO473M3 MM; CHOL12502 GT; COLL30OI TP; DOCU-141 GT; Hydrocodone/Apap 5/325MG GT; INSU100I26 SQ; INSU100V39 SQ; IPRA3AMP23 IH; LEVO25TA9 GT; LORA-259 GT; MIDO10TA GT; MULT-188 GT; MUPI22OI7 TP; NUT.237L67 GT; NYST15PO3 TP; ONDA4TAB5 GT; SEVE800T8 GT; TAMO20TA4 GT; VANC1VIA34 XX
[2021-02-19 15:46] LABS: BASOPHILS % (AUTO) 0.3 % (0.0-2.0); EOSINOPHILS % (AUTO) 0.8 % (0.0-6.0); HEMATOCRIT 21 % (33-45); LYMPHOCYTES # (AUTO) 1.1 K/uL (0.8-4.8); MEAN CORPUSCULAR HGB CONC 30 g/dl (31.0-36.0); MEAN CORPUSCULAR VOLUME 95 fL (82-100); MONOCYTES # (AUTO) 0.9 K/uL (0.1-1.30); MONOCYTES % (AUTO) 7.1 % (2.0-12.0); NEUTROPHILS # (AUTO) 10.6 K/uL (1.8-8.9); NEUTROPHILS % (AUTO) 82.8 % (43.0-81.0); PLATELET COUNT (AUTO) 358 K/uL (150-450); RED BLOOD CELL COUNT(AUTO) 2.16 MIL/uL (4.0-5.2); WHITE BLOOD COUNT (AUTO) 12.8 K/uL (4.3-11.0)
[2021-02-19 15:49] LABS: HEMOGLOBIN 6.2 g/dL (11.5-14.8)
[2021-02-19 15:59] LABS: SERUM AMMONIA 42 umol/L (11-32)
[2021-02-19 16:18] LABS: ACETAMINOPHEN 0 ug/ml (10-30); ALANINE AMINOTRANSFERASE 6 U/L (12-78); ALKALINE PHOSPHATASE 191 U/L (46-116); ASPARTATE AMINOTRANSFERASE 18 U/L (15-37); BILIRUBIN,DIRECT 0.3 mg/dL (0.0-0.2); BILIRUBIN,TOTAL 0.4 mg/dL (0.2-1.0); CARBON DIOXIDE 25 mmol/L (21-32); CHLORIDE 102 mmol/L (98-107); CREATININE 2.3 mg/dL (0.6-1.3); GLUCOSE 242 mg/dL (74-106); POTASSIUM 3.7 mmol/L (3.5-5.1); SODIUM SERUM 137 mmol/L (136-145); TOTAL PROTEIN, SERUM 6.9 g/dL (6.4-8.2); UREA NITROGEN, BLOOD 29 mg/dL (7-18)
[2021-02-19 16:20] LABS: BAND % (MANUAL) 2 % (0.0-5.0); LYMPHOCYTES % (MANUAL) 6 % (16-48); MONOCYTES % (MANUAL) 10 % (0-11.0); NEUTROPHILS % (MANUAL) 82 (42-76)
[2021-02-19 16:21] LABS: ALBUMIN 1.3 g/dL (3.4-5.0); ALCOHOL, BLOOD < 3 mg/dL (0-0)
[2021-02-19 16:56] LABS: THYROID STIMULATING HORMONE 50.978 uIU/mL (0.358-3.74)
[2021-02-19] MEDS ORDERED: MORPHINE SULFATE INJ 2 MG/ML DISP.SYRIN IV PRN (19:00)
[2021-02-19] MEDS ORDERED: ONDANSETRON HCL/PF 4 MG/2 ML VIAL IVP PRN (19:00)
[2021-02-19] MEDS ORDERED: TEMAZEPAM 15 MG CAPSULE GT PRN (19:00)
[2021-02-19] MEDS ORDERED: Z GUARD REMEDY 4 OZ OINT TP PRN (19:00)
[2021-02-19] MEDS ORDERED: HYDROCODONE/APAP 5/325MG TABLET GT PRN (19:00)
[2021-02-19] MEDS ORDERED: EPOETIN ALFA (10,000 UNIT) 10,000 UNIT/ML VIAL IV ONE (19:00)
[2021-02-19] MEDS ORDERED: DEXTROSE 50%-WATER 50 ML DISP.SYRIN IV PRN (19:00)
[2021-02-19] MEDS ORDERED: CLON0.2T GT (19:03)
[2021-02-19] MEDS ORDERED: NEPRO VAN 237 ML CAN GT SCH (19:30)
[2021-02-19] MEDS ORDERED: ALBUTEROL FS 2.5 MG/3 ML VIAL.NEB NEB PRN (19:30)
[2021-02-19] MEDS ORDERED: LORAZEPAM 1 MG TABLET GT PRN (19:30)
[2021-02-19] MEDS ORDERED: CLONIDINE HCL 0.1 MG TABLET PO PRN (19:30)
[2021-02-19 20:00] VITALS: BP 124/70
[2021-02-19 20:35] VITALS: BP 124/70
[2021-02-19] MEDS: MUPIROCIN OINT 2% 22 GM TUBE TP SCH (21:00)
[2021-02-19] MEDS ORDERED: EPOETIN ALFA (10,000 UNIT) 10,000 UNIT/ML VIAL ONE (21:32)
[2021-02-19] MEDS: ATORVASTATIN 40 MG TABLET GT SCH (22:02)
[2021-02-19] MEDS: PANTOPRAZOLE 40 MG VIAL IV SCH (22:09)
[2021-02-20] VITALS: BP 118/69
[2021-02-20] MEDS: BLOOD SUGAR DIAGNOSTIC 1 EACH STRIP IN SCH ×4 (00:11→17:27)
[2021-02-20] MEDS: INSULIN REGULAR, HUMAN 100 UNIT/ML 3 ML VIAL SQ PRN ×4 (00:42→17:35)
[2021-02-20 04:00] VITALS: BP 100/45
[2021-02-20] MEDS ORDERED: LORAZEPAM 0.5 MG TABLET GT PRN (06:30)
[2021-02-20] MEDS ORDERED: NEPRO 1,000 ML BOTTLE GT PRN (07:00)
[2021-02-20] MEDS: CHLORHEXIDINE GLUCONATE 15 ML UDC MM SCH ×2 (08:38→16:11)
[2021-02-20] MEDS: PANTOPRAZOLE 40 MG VIAL IV SCH (08:39)
[2021-02-20] MEDS: ASPIRIN 81 MG TAB.CHEW GT SCH (08:40)
[2021-02-20] MEDS: DOCUSATE SODIUM 100 MG CAPSULE PO SCH (08:40)
[2021-02-20] MEDS: MULTIVITAMINS,THERAGRAN 1 UDTAB TABLET GT SCH (08:40)
[2021-02-20] MEDS: SEVELAMER CARBONATE 800 MG POWD.PACK GT SCH ×3 (08:40→17:12)
[2021-02-20] MEDS: CHOLECALCIFEROL 1,000 UNIT TABLET (VIT D3) GT SCH (08:40)
[2021-02-20] MEDS: CALCIUM ACETATE 667 MG CAP/TAB GT SCH ×3 (08:40→17:12)
[2021-02-20] MEDS: NYSTATIN TOP POWDER 15 GM BOTTLE TP SCH ×2 (08:43→16:20)
[2021-02-20] MEDS: MUPIROCIN OINT 2% 22 GM TUBE TP SCH ×2 (08:44→21:09)
[2021-02-20] MEDS: THERAHONEY GEL 1.5 OZ TUBE TP SCH (08:44)
[2021-02-20] MEDS: LEVOTHYROXINE SODIUM 25 MCG TABLET GT SCH (08:45)
[2021-02-20] MEDS: TAMOXIFEN CITRATE 10 MG TABLET GT SCH (08:45)
[2021-02-20] MEDS: PROSOURCE / PROSTAT (PYXIS) 30 ML UDC GT SCH ×2 (13:19→16:11)
[2021-02-20 13:58] LABS: BASOPHILS # (AUTO) 0.1 K/uL (0.0-0.2); BASOPHILS % (AUTO) 0.4 % (0.0-2.0); EOSINOPHILS % (AUTO) 0.7 % (0.0-6.0); HEMATOCRIT 25 % (33-45); HEMOGLOBIN 7.8 g/dL (11.5-14.8); LYMPHOCYTES # (AUTO) 1.2 K/uL (0.8-4.8); MEAN CORPUSCULAR HGB CONC 31 g/dl (31.0-36.0); MEAN CORPUSCULAR VOLUME 94 fL (82-100); MONOCYTES % (AUTO) 6.7 % (2.0-12.0); NEUTROPHILS # (AUTO) 12.3 K/uL (1.8-8.9); NEUTROPHILS % (AUTO) 84.2 % (43.0-81.0); PLATELET COUNT (AUTO) 305 K/uL (150-450); RED BLOOD CELL COUNT(AUTO) 2.67 MIL/uL (4.0-5.2); WHITE BLOOD COUNT (AUTO) 14.6 K/uL (4.3-11.0)
[2021-02-20 14:08] LABS: CALCIUM, SERUM 8.8 mg/dL (8.5-10.1); CREATININE 2.3 mg/dL (0.6-1.3); MAGNESIUM 2.2 mg/dL (1.8-2.4); PHOSPHORUS 2.1 mg/dL (2.5-4.9); POTASSIUM 4.2 mmol/L (3.5-5.1)
[2021-02-20] MEDS: INSULIN GLARGINE, 100 UNIT/ML CARTRIDGE SQ SCH (17:12)
[2021-02-20 20:00] VITALS: BP 124/84
[2021-02-20] MEDS: ATORVASTATIN 40 MG TABLET GT SCH (22:20)
[2021-02-21] VITALS (13 sets, daily range): BP systolic 100–140; BP diastolic 49–80
[2021-02-21] MEDS: BLOOD SUGAR DIAGNOSTIC 1 EACH STRIP IN SCH ×4 (00:01→18:23)
[2021-02-21] MEDS: INSULIN REGULAR, HUMAN 100 UNIT/ML 3 ML VIAL SQ PRN ×4 (00:10→23:44)
[2021-02-21] MEDS: NEPRO 1,000 ML BOTTLE GT SCH (05:44)
[2021-02-21 07:49] LABS: BASOPHILS # (AUTO) 0.1 K/uL (0.0-0.2); BASOPHILS % (AUTO) 0.3 % (0.0-2.0); EOSINOPHILS % (AUTO) 0.5 % (0.0-6.0); HEMATOCRIT 22 % (33-45); LYMPHOCYTES # (AUTO) 1.2 K/uL (0.8-4.8); MEAN CORPUSCULAR HGB CONC 31 g/dl (31.0-36.0); MEAN CORPUSCULAR VOLUME 94 fL (82-100); MONOCYTES # (AUTO) 1.5 K/uL (0.1-1.30); MONOCYTES % (AUTO) 8.8 % (2.0-12.0); NEUTROPHILS # (AUTO) 13.8 K/uL (1.8-8.9); NEUTROPHILS % (AUTO) 83.4 % (43.0-81.0); PLATELET COUNT (AUTO) 392 K/uL (150-450); RED BLOOD CELL COUNT(AUTO) 2.38 MIL/uL (4.0-5.2); WHITE BLOOD COUNT (AUTO) 16.6 K/uL (4.3-11.0)
[2021-02-21 08:08] LABS: CALCIUM, SERUM 8.9 mg/dL (8.5-10.1); CREATININE 2.6 mg/dL (0.6-1.3); POTASSIUM 3.8 mmol/L (3.5-5.1)
[2021-02-21] MEDS ORDERED: PANTOPRAZOLE 40 MG/PACK PACK GT SCH (09:00)
[2021-02-21] MEDS: THERAHONEY GEL 1.5 OZ TUBE TP SCH (09:06)
[2021-02-21] MEDS: NYSTATIN TOP POWDER 15 GM BOTTLE TP SCH ×2 (09:06→18:24)
[2021-02-21] MEDS: MUPIROCIN OINT 2% 22 GM TUBE TP SCH ×2 (09:06→21:00)
[2021-02-21] MEDS: SEVELAMER CARBONATE 800 MG POWD.PACK GT SCH ×3 (09:15→18:24)
[2021-02-21] MEDS: MULTIVITAMINS,THERAGRAN 1 UDTAB TABLET GT SCH (09:16)
[2021-02-21] MEDS: LEVOTHYROXINE SODIUM 25 MCG TABLET GT SCH (09:16)
[2021-02-21] MEDS: DOCUSATE SODIUM 100 MG CAPSULE PO SCH (09:16)
[2021-02-21] MEDS: ASPIRIN 81 MG TAB.CHEW GT SCH (09:16)
[2021-02-21] MEDS: CHOLECALCIFEROL 1,000 UNIT TABLET (VIT D3) GT SCH (09:16)
[2021-02-21] MEDS: TAMOXIFEN CITRATE 10 MG TABLET GT SCH (09:16)
[2021-02-21] MEDS: CALCIUM ACETATE 667 MG CAP/TAB GT SCH ×3 (09:16→18:24)
[2021-02-21] MEDS: PROSOURCE / PROSTAT (PYXIS) 30 ML UDC GT SCH ×2 (09:17→18:24)
[2021-02-21] MEDS: CHLORHEXIDINE GLUCONATE 15 ML UDC MM SCH ×2 (09:17→16:47)
[2021-02-21] MEDS: PANTOPRAZOLE 40 MG/PACK PACK GT SCH ×2 (12:47→18:23)
[2021-02-21] MEDS: ACETAMINOPHEN 325 MG TABLET MC PRN (12:47)
[2021-02-21] MEDS ORDERED: VANCOMYCIN 1 GM in IV D5W 250 ML IV ONE (13:00)
[2021-02-21] MEDS: CEFEPIME 1 GM in IV D5W 50 ML IV SCH (14:40)
[2021-02-21 16:19] LABS: ABG BASE EXCESS -1.1 mmol/L; ABG OXYGEN SATURATION 85.2 % (92.0-98.5); ABG PCO2 72.6 mmHg (35.0-45.0); ABG PH 7.198 (7.350-7.450); ABG PO2 56.1 mmHg (75.0-100.0); AaDO2 584.3 mmHg; COHb 0.8 % (0.5-1.5); MetHb 0.2 % (0.0-1.5); O2Hb 84.3 % (94.0-97.0); SITE, ABG Right Radial; VENT MODE, BG AC 14 450 100% +5
[2021-02-21] MEDS ORDERED: NOREPINEPHRINE 8 MG in IV NS 0.9% 242 ML IV PRN ×2 (16:30→17:30)
[2021-02-21] MEDS: INSULIN GLARGINE, 100 UNIT/ML CARTRIDGE SQ SCH (18:26)
[2021-02-21 19:28] LABS: ABG OXYGEN SATURATION 99.8 % (92.0-98.5); ABG PCO2 43.4 mmHg (35.0-45.0); ABG PH 7.351 (7.350-7.450); ABG PO2 483.1 mmHg (75.0-100.0); AaDO2 186.5 mmHg; COHb 0.1 % (0.5-1.5); MetHb 0.3 % (0.0-1.5); O2Hb 99.4 % (94.0-97.0); PEEP,BG 5 cm H2O; SITE, ABG Left Brachial; VENT MODE, BG AC14 VT450 100% peep+5; VT, ABG 450 mL
[2021-02-21] MEDS: ATORVASTATIN 40 MG TABLET GT SCH (22:50)
[2021-02-22] VITALS (69 sets, daily range): BP systolic 49–171; BP diastolic 15–116
[2021-02-22] MEDS: BLOOD SUGAR DIAGNOSTIC 1 EACH STRIP IN SCH ×4 (01:26→18:12)
[2021-02-22] MEDS: ACETAMINOPHEN 325 MG TABLET MC PRN ×2 (02:13→15:21)
[2021-02-22] MEDS ORDERED: VANCOMYCIN 500 MG in IV D5W 100 ML IV PRN (06:00)
[2021-02-22 06:40] LABS: BASOPHILS # (AUTO) 0.1 K/uL (0.0-0.2); BASOPHILS % (AUTO) 0.3 % (0.0-2.0); EOSINOPHILS % (AUTO) 0.5 % (0.0-6.0); HEMATOCRIT 22 % (33-45); LYMPHOCYTES # (AUTO) 1.3 K/uL (0.8-4.8); LYMPHOCYTES % (AUTO) 6.9 % (20.0-44.0); MEAN CORPUSCULAR HGB CONC 31 g/dl (31.0-36.0); MEAN CORPUSCULAR VOLUME 95 fL (82-100); MONOCYTES # (AUTO) 1.2 K/uL (0.1-1.30); MONOCYTES % (AUTO) 6.8 % (2.0-12.0); NEUTROPHILS # (AUTO) 15.4 K/uL (1.8-8.9); NEUTROPHILS % (AUTO) 85.5 % (43.0-81.0); PLATELET COUNT (AUTO) 392 K/uL (150-450)
[2021-02-22 08:11] LABS: HEMOGLOBIN 6.8 g/dL (11.5-14.8)
[2021-02-22] MEDS: PANTOPRAZOLE 40 MG/PACK PACK GT SCH ×2 (09:08→17:02)
[2021-02-22] MEDS: CALCIUM ACETATE 667 MG CAP/TAB GT SCH ×3 (09:08→18:10)
[2021-02-22] MEDS: MULTIVITAMINS,THERAGRAN 1 UDTAB TABLET GT SCH (09:08)
[2021-02-22] MEDS: CHLORHEXIDINE GLUCONATE 15 ML UDC MM SCH ×2 (09:08→17:01)
[2021-02-22] MEDS: ASPIRIN 81 MG TAB.CHEW GT SCH (09:08)
[2021-02-22] MEDS: CHOLECALCIFEROL 1,000 UNIT TABLET (VIT D3) GT SCH (09:08)
[2021-02-22] MEDS: DOCUSATE SODIUM 100 MG CAPSULE PO SCH (09:08)
[2021-02-22] MEDS: SEVELAMER CARBONATE 800 MG POWD.PACK GT SCH ×3 (09:08→18:10)
[2021-02-22] MEDS: LEVOTHYROXINE SODIUM 25 MCG TABLET GT SCH (09:08)
[2021-02-22] MEDS: THERAHONEY GEL 1.5 OZ TUBE TP SCH ×2 (09:09)
[2021-02-22] MEDS: NYSTATIN TOP POWDER 15 GM BOTTLE TP SCH ×2 (09:09→17:48)
[2021-02-22] MEDS: MUPIROCIN OINT 2% 22 GM TUBE TP SCH ×2 (09:09→21:43)
[2021-02-22] MEDS: PROSOURCE / PROSTAT (PYXIS) 30 ML UDC GT SCH ×2 (09:10→17:01)
[2021-02-22] MEDS: TAMOXIFEN CITRATE 10 MG TABLET GT SCH (09:51)
[2021-02-22 10:23] LABS: POTASSIUM 4.3 mmol/L (3.5-5.1)
[2021-02-22 10:24] LABS: CALCIUM, SERUM 8.8 mg/dL (8.5-10.1); CREATININE 3.1 mg/dL (0.6-1.3)
[2021-02-22] MEDS: INSULIN REGULAR, HUMAN 100 UNIT/ML 3 ML VIAL SQ PRN ×2 (11:49→18:12)
[2021-02-22] MEDS: NEPRO 1,000 ML BOTTLE GT SCH (13:52)
[2021-02-22] MEDS: CEFEPIME 1 GM in IV D5W 50 ML IV SCH (14:16)
[2021-02-22] MEDS ORDERED: EPOETIN ALFA (10,000 UNIT) 10,000 UNIT/ML VIAL IV ONE (15:00)
[2021-02-22] MEDS: INSULIN GLARGINE, 100 UNIT/ML CARTRIDGE SQ SCH (18:12)
[2021-02-22] MEDS: ATORVASTATIN 40 MG TABLET GT SCH (21:44)
[2021-02-23] VITALS (44 sets, daily range): BP systolic 81–139; BP diastolic 45–104
[2021-02-23] MEDS: BLOOD SUGAR DIAGNOSTIC 1 EACH STRIP IN SCH ×4 (00:23→17:41)
[2021-02-23] MEDS: INSULIN REGULAR, HUMAN 100 UNIT/ML 3 ML VIAL SQ PRN ×2 (00:25→05:52)
[2021-02-23 05:33] LABS: BASOPHILS % (AUTO) 0.3 % (0.0-2.0); EOSINOPHILS % (AUTO) 1.6 % (0.0-6.0); HEMATOCRIT 26 % (33-45); HEMOGLOBIN 8.4 g/dL (11.5-14.8); LYMPHOCYTES # (AUTO) 1.1 K/uL (0.8-4.8); LYMPHOCYTES % (AUTO) 8.2 % (20.0-44.0); MEAN CORPUSCULAR HGB CONC 32 g/dl (31.0-36.0); MEAN CORPUSCULAR VOLUME 93 fL (82-100); MONOCYTES # (AUTO) 1.3 K/uL (0.1-1.30); MONOCYTES % (AUTO) 9.6 % (2.0-12.0); NEUTROPHILS % (AUTO) 80.3 % (43.0-81.0); PLATELET COUNT (AUTO) 402 K/uL (150-450); RED BLOOD CELL COUNT(AUTO) 2.83 MIL/uL (4.0-5.2); WHITE BLOOD COUNT (AUTO) 13.8 K/uL (4.3-11.0)
[2021-02-23 05:45] LABS: OCCULT BLOOD STOOL POSITIVE (NEGATIVE)
[2021-02-23 05:54] LABS: CREATININE 2.9 mg/dL (0.6-1.3); POTASSIUM 3.9 mmol/L (3.5-5.1)
[2021-02-23] MEDS: CHLORHEXIDINE GLUCONATE 15 ML UDC MM SCH ×2 (08:36→17:39)
[2021-02-23] MEDS: SEVELAMER CARBONATE 800 MG POWD.PACK GT SCH ×3 (08:36→17:41)
[2021-02-23] MEDS: PANTOPRAZOLE 40 MG/PACK PACK GT SCH (08:37)
[2021-02-23] MEDS: CALCIUM ACETATE 667 MG CAP/TAB GT SCH ×3 (08:37→17:41)
[2021-02-23] MEDS: LEVOTHYROXINE SODIUM 25 MCG TABLET GT SCH (08:37)
[2021-02-23] MEDS: DOCUSATE SODIUM 100 MG CAPSULE PO SCH (08:37)
[2021-02-23] MEDS: MULTIVITAMINS,THERAGRAN 1 UDTAB TABLET GT SCH (08:37)
[2021-02-23] MEDS: CHOLECALCIFEROL 1,000 UNIT TABLET (VIT D3) GT SCH (08:37)
[2021-02-23] MEDS: ASPIRIN 81 MG TAB.CHEW GT SCH (08:37)
[2021-02-23] MEDS: MUPIROCIN OINT 2% 22 GM TUBE TP SCH ×2 (08:38→21:33)
[2021-02-23] MEDS: PROSOURCE / PROSTAT (PYXIS) 30 ML UDC GT SCH ×2 (08:38→17:39)
[2021-02-23] MEDS: NYSTATIN TOP POWDER 15 GM BOTTLE TP SCH ×2 (08:39→17:39)
[2021-02-23] MEDS: THERAHONEY GEL 1.5 OZ TUBE TP SCH ×2 (08:39→08:40)
[2021-02-23] MEDS: TAMOXIFEN CITRATE 10 MG TABLET GT SCH (08:41)
[2021-02-23] MEDS: ACETAMINOPHEN 325 MG TABLET MC PRN (10:58)
[2021-02-23] MEDS: CEFEPIME 1 GM in IV D5W 50 ML IV SCH (14:26)
[2021-02-23] MEDS: INSULIN GLARGINE, 100 UNIT/ML CARTRIDGE SQ SCH (18:28)
[2021-02-23] MEDS: NEPRO 1,000 ML BOTTLE GT SCH (18:41)
[2021-02-23] MEDS: PANTOPRAZOLE 40 MG VIAL IV SCH (21:28)
[2021-02-23] MEDS: ATORVASTATIN 40 MG TABLET GT SCH (21:28)
[2021-02-24] VITALS: BP 90/53
[2021-02-24] MEDS: BLOOD SUGAR DIAGNOSTIC 1 EACH STRIP IN SCH ×5 (00:22→23:55)
[2021-02-24] MEDS: INSULIN REGULAR, HUMAN 100 UNIT/ML 3 ML VIAL SQ PRN ×4 (00:27→17:44)
[2021-02-24 07:13] LABS: BASOPHILS # (AUTO) 0.1 K/uL (0.0-0.2); BASOPHILS % (AUTO) 0.3 % (0.0-2.0); EOSINOPHILS % (AUTO) 0.6 % (0.0-6.0); HEMATOCRIT 26 % (33-45); HEMOGLOBIN 8.2 g/dL (11.5-14.8); LYMPHOCYTES # (AUTO) 1.3 K/uL (0.8-4.8); LYMPHOCYTES % (AUTO) 5.8 % (20.0-44.0); MEAN CORPUSCULAR HGB CONC 32 g/dl (31.0-36.0); MEAN CORPUSCULAR VOLUME 94 fL (82-100); MONOCYTES # (AUTO) 1.8 K/uL (0.1-1.30); MONOCYTES % (AUTO) 8.3 % (2.0-12.0); NEUTROPHILS # (AUTO) 18.8 K/uL (1.8-8.9); PLATELET COUNT (AUTO) 408 K/uL (150-450); RED BLOOD CELL COUNT(AUTO) 2.76 MIL/uL (4.0-5.2); WHITE BLOOD COUNT (AUTO) 22.1 K/uL (4.3-11.0)
[2021-02-24 08:00] VITALS: BP 94/39
[2021-02-24 08:01] LABS: CALCIUM, SERUM 9.4 mg/dL (8.5-10.1); CREATININE 3.4 mg/dL (0.6-1.3); POTASSIUM 4.1 mmol/L (3.5-5.1)
[2021-02-24] MEDS: THERAHONEY GEL 1.5 OZ TUBE TP SCH ×2 (09:00→10:03)
[2021-02-24] MEDS: SEVELAMER CARBONATE 800 MG POWD.PACK GT SCH ×3 (09:27→17:42)
[2021-02-24] MEDS: CHLORHEXIDINE GLUCONATE 15 ML UDC MM SCH ×2 (09:27→16:13)
[2021-02-24] MEDS: PANTOPRAZOLE 40 MG VIAL IV SCH ×2 (09:27→21:00)
[2021-02-24] MEDS: DOCUSATE SODIUM 100 MG CAPSULE PO SCH (09:27)
[2021-02-24] MEDS: LEVOTHYROXINE SODIUM 25 MCG TABLET GT SCH (09:27)
[2021-02-24] MEDS: CHOLECALCIFEROL 1,000 UNIT TABLET (VIT D3) GT SCH (09:27)
[2021-02-24] MEDS: CALCIUM ACETATE 667 MG CAP/TAB GT SCH ×3 (09:27→17:42)
[2021-02-24] MEDS: ASPIRIN 81 MG TAB.CHEW GT SCH (09:27)
[2021-02-24] MEDS: MULTIVITAMINS,THERAGRAN 1 UDTAB TABLET GT SCH (09:27)
[2021-02-24] MEDS: PROSOURCE / PROSTAT (PYXIS) 30 ML UDC GT SCH ×2 (09:29→16:12)
[2021-02-24] MEDS: TAMOXIFEN CITRATE 10 MG TABLET GT SCH (09:29)
[2021-02-24] MEDS: NYSTATIN TOP POWDER 15 GM BOTTLE TP SCH ×2 (10:02→16:13)
[2021-02-24] MEDS: MUPIROCIN OINT 2% 22 GM TUBE TP SCH ×2 (10:04→21:14)
[2021-02-24] MEDS: ALBUMIN 25% 25 GM in PREMIX 1 EA IV PRN (12:49)
[2021-02-24] MEDS: CEFEPIME 1 GM in IV D5W 50 ML IV SCH (14:10)
[2021-02-24 16:00] VITALS: BP 98/51
[2021-02-24] MEDS: INSULIN GLARGINE, 100 UNIT/ML CARTRIDGE SQ SCH (17:51)
[2021-02-24 20:00] VITALS: BP 160/70
[2021-02-24] MEDS: ATORVASTATIN 40 MG TABLET GT SCH (21:01)
[2021-02-24] MEDS: COLISTIMETHATE SODIUM 100 MG in IV NS 0.9% 50 ML IV SCH (21:14)
[2021-02-25] VITALS: BP_SYST 126; BP_SYST 129; BP_DIAS 68
[2021-02-25] MEDS: INSULIN REGULAR, HUMAN 100 UNIT/ML 3 ML VIAL SQ PRN ×4 (01:53→18:27)
[2021-02-25] MEDS: NEPRO 1,000 ML BOTTLE GT SCH (01:54)
[2021-02-25 04:00] VITALS: BP 105/60
[2021-02-25] MEDS: BLOOD SUGAR DIAGNOSTIC 1 EACH STRIP IN SCH ×3 (05:09→18:17)
[2021-02-25 07:22] LABS: BASOPHILS # (AUTO) 0.1 K/uL (0.0-0.2); BASOPHILS % (AUTO) 0.4 % (0.0-2.0); EOSINOPHILS % (AUTO) 2.1 % (0.0-6.0); HEMATOCRIT 26 % (33-45); LYMPHOCYTES # (AUTO) 1.4 K/uL (0.8-4.8); LYMPHOCYTES % (AUTO) 9.2 % (20.0-44.0); MEAN CORPUSCULAR HGB CONC 31 g/dl (31.0-36.0); MEAN CORPUSCULAR VOLUME 94 fL (82-100); MONOCYTES # (AUTO) 1.5 K/uL (0.1-1.30); NEUTROPHILS # (AUTO) 11.7 K/uL (1.8-8.9); NEUTROPHILS % (AUTO) 78.3 % (43.0-81.0); PLATELET COUNT (AUTO) 356 K/uL (150-450); RED BLOOD CELL COUNT(AUTO) 2.73 MIL/uL (4.0-5.2)
[2021-02-25 07:57] LABS: CALCIUM, SERUM 9.7 mg/dL (8.5-10.1); POTASSIUM 3.7 mmol/L (3.5-5.1)
[2021-02-25 08:00] VITALS: BP 112/58
[2021-02-25] MEDS: THERAHONEY GEL 1.5 OZ TUBE TP SCH ×2 (09:00→18:45)
[2021-02-25] MEDS ORDERED: EPOETIN ALFA-EPBX 10,000 UNIT/ML VIAL IV ONE (09:00)
[2021-02-25] MEDS: CHOLECALCIFEROL 1,000 UNIT TABLET (VIT D3) GT SCH (10:09)
[2021-02-25] MEDS: TAMOXIFEN CITRATE 10 MG TABLET GT SCH (10:10)
[2021-02-25] MEDS: LEVOTHYROXINE SODIUM 25 MCG TABLET GT SCH (10:10)
[2021-02-25] MEDS: MULTIVITAMINS,THERAGRAN 1 UDTAB TABLET GT SCH (10:10)
[2021-02-25] MEDS: DOCUSATE SODIUM 100 MG CAPSULE PO SCH (10:10)
[2021-02-25] MEDS: ASPIRIN 81 MG TAB.CHEW GT SCH (10:10)
[2021-02-25] MEDS: PANTOPRAZOLE 40 MG VIAL IV SCH ×2 (10:11→21:50)
[2021-02-25] MEDS: CHLORHEXIDINE GLUCONATE 15 ML UDC MM SCH ×2 (10:11→17:00)
[2021-02-25] MEDS: CALCIUM ACETATE 667 MG CAP/TAB GT SCH ×3 (10:16→18:16)
[2021-02-25] MEDS: SEVELAMER CARBONATE 800 MG POWD.PACK GT SCH ×3 (10:17→18:16)
[2021-02-25] MEDS: PROSOURCE / PROSTAT (PYXIS) 30 ML UDC GT SCH ×2 (10:19→18:17)
[2021-02-25 11:37] LABS: BAND % (MANUAL) 3 % (0.0-5.0); EOSINOPHILS % (MANUAL) 2 % (0-4); LYMPHOCYTES % (MANUAL) 7 % (16-48); MONOCYTES % (MANUAL) 9 % (0-11.0); NEUTROPHILS % (MANUAL) 79 (42-76)
[2021-02-25 12:00] VITALS: BP 115/60
[2021-02-25 16:00] VITALS: BP_SYST 118; BP_SYST 124; BP_DIAS 50; BP_DIAS 66
[2021-02-25] MEDS: INSULIN GLARGINE, 100 UNIT/ML CARTRIDGE SQ SCH (18:37)
[2021-02-25] MEDS: NYSTATIN TOP POWDER 15 GM BOTTLE TP SCH ×2 (18:45→18:46)
[2021-02-25] MEDS: MUPIROCIN OINT 2% 22 GM TUBE TP SCH ×2 (18:45→21:50)
[2021-02-25 20:00] VITALS: BP 113/65
[2021-02-25] MEDS: ATORVASTATIN 40 MG TABLET GT SCH (21:51)
[2021-02-25] MEDS: COLISTIMETHATE SODIUM 100 MG in IV NS 0.9% 50 ML IV SCH (21:51)
[2021-02-26] VITALS: BP 110/76
[2021-02-26 04:00] VITALS: BP 115/74
[2021-02-26 06:31] LABS: BASOPHILS # (AUTO) 0.1 K/uL (0.0-0.2); BASOPHILS % (AUTO) 0.5 % (0.0-2.0); EOSINOPHILS % (AUTO) 3.4 % (0.0-6.0); HEMATOCRIT 27 % (33-45); HEMOGLOBIN 8.6 g/dL (11.5-14.8); LYMPHOCYTES # (AUTO) 1.2 K/uL (0.8-4.8); LYMPHOCYTES % (AUTO) 9.1 % (20.0-44.0); MEAN CORPUSCULAR HGB CONC 32 g/dl (31.0-36.0); MEAN CORPUSCULAR VOLUME 94 fL (82-100); MONOCYTES # (AUTO) 1.2 K/uL (0.1-1.30); NEUTROPHILS # (AUTO) 10.4 K/uL (1.8-8.9); PLATELET COUNT (AUTO) 316 K/uL (150-450); RED BLOOD CELL COUNT(AUTO) 2.89 MIL/uL (4.0-5.2); WHITE BLOOD COUNT (AUTO) 13.4 K/uL (4.3-11.0)
[2021-02-26] MEDS: INSULIN REGULAR, HUMAN 100 UNIT/ML 3 ML VIAL SQ PRN ×2 (06:41→23:53)
[2021-02-26] MEDS: BLOOD SUGAR DIAGNOSTIC 1 EACH STRIP IN SCH ×5 (06:42→23:52)
[2021-02-26] MEDS: NEPRO 1,000 ML BOTTLE GT SCH (06:52)
[2021-02-26 07:12] LABS: CALCIUM, SERUM 9.8 mg/dL (8.5-10.1); CREATININE 3.4 mg/dL (0.6-1.3); POTASSIUM 4.1 mmol/L (3.5-5.1)
[2021-02-26 08:00] VITALS: BP 158/80
[2021-02-26] MEDS: MULTIVITAMINS,THERAGRAN 1 UDTAB TABLET GT SCH (08:39)
[2021-02-26] MEDS: DOCUSATE SODIUM 100 MG CAPSULE PO SCH (08:39)
[2021-02-26] MEDS: CHLORHEXIDINE GLUCONATE 15 ML UDC MM SCH ×2 (08:39→16:11)
[2021-02-26] MEDS: TAMOXIFEN CITRATE 10 MG TABLET GT SCH (08:39)
[2021-02-26] MEDS: ASPIRIN 81 MG TAB.CHEW GT SCH (08:39)
[2021-02-26] MEDS: CHOLECALCIFEROL 1,000 UNIT TABLET (VIT D3) GT SCH (08:39)
[2021-02-26] MEDS: CALCIUM ACETATE 667 MG CAP/TAB GT SCH ×3 (08:39→17:55)
[2021-02-26] MEDS: SEVELAMER CARBONATE 800 MG POWD.PACK GT SCH ×3 (08:40→17:55)
[2021-02-26] MEDS: MUPIROCIN OINT 2% 22 GM TUBE TP SCH ×2 (08:40→20:34)
[2021-02-26] MEDS: LEVOTHYROXINE SODIUM 25 MCG TABLET GT SCH (08:40)
[2021-02-26] MEDS: PANTOPRAZOLE 40 MG VIAL IV SCH ×2 (08:40→20:34)
[2021-02-26] MEDS: THERAHONEY GEL 1.5 OZ TUBE TP SCH ×2 (08:40→08:41)
[2021-02-26] MEDS: PROSOURCE / PROSTAT (PYXIS) 30 ML UDC GT SCH ×2 (08:40→16:11)
[2021-02-26] MEDS: NYSTATIN TOP POWDER 15 GM BOTTLE TP SCH ×2 (08:41→16:12)
[2021-02-26] MEDS: ALBUMIN 25% 25 GM in PREMIX 1 EA IV PRN (13:54)
[2021-02-26 16:00] VITALS: BP 118/64
[2021-02-26] MEDS: INSULIN GLARGINE, 100 UNIT/ML CARTRIDGE SQ SCH (17:16)
[2021-02-26 20:00] VITALS: BP 111/69
[2021-02-26] MEDS: COLISTIMETHATE SODIUM 100 MG in IV NS 0.9% 50 ML IV SCH (20:34)
[2021-02-26] MEDS: ATORVASTATIN 40 MG TABLET GT SCH (22:12)
[2021-02-27] VITALS: BP 107/55
[2021-02-27 03:31] VITALS: BP 107/55
[2021-02-27 04:00] VITALS: BP 142/59
[2021-02-27] MEDS: BLOOD SUGAR DIAGNOSTIC 1 EACH STRIP IN SCH ×3 (05:17→17:20)
[2021-02-27] MEDS: NEPRO 1,000 ML BOTTLE GT SCH (05:17)
[2021-02-27 07:01] LABS: BASOPHILS # (AUTO) 0.1 K/uL (0.0-0.2); BASOPHILS % (AUTO) 0.7 % (0.0-2.0); EOSINOPHILS % (AUTO) 3.8 % (0.0-6.0); HEMATOCRIT 26 % (33-45); HEMOGLOBIN 8.2 g/dL (11.5-14.8); LYMPHOCYTES # (AUTO) 1.1 K/uL (0.8-4.8); LYMPHOCYTES % (AUTO) 10.1 % (20.0-44.0); MEAN CORPUSCULAR HGB CONC 32 g/dl (31.0-36.0); MEAN CORPUSCULAR VOLUME 94 fL (82-100); MONOCYTES # (AUTO) 0.8 K/uL (0.1-1.30); MONOCYTES % (AUTO) 6.9 % (2.0-12.0); NEUTROPHILS # (AUTO) 8.6 K/uL (1.8-8.9); NEUTROPHILS % (AUTO) 78.5 % (43.0-81.0); PLATELET COUNT (AUTO) 305 K/uL (150-450); RED BLOOD CELL COUNT(AUTO) 2.74 MIL/uL (4.0-5.2); WHITE BLOOD COUNT (AUTO) 10.9 K/uL (4.3-11.0)
[2021-02-27 07:25] LABS: CALCIUM, SERUM 9.5 mg/dL (8.5-10.1); CREATININE 2.7 mg/dL (0.6-1.3); POTASSIUM 3.7 mmol/L (3.5-5.1)
[2021-02-27 08:00] VITALS: BP 104/60
[2021-02-27] MEDS: THERAHONEY GEL 1.5 OZ TUBE TP SCH ×2 (09:00→10:34)
[2021-02-27] MEDS: SEVELAMER CARBONATE 800 MG POWD.PACK GT SCH ×3 (10:27→17:48)
[2021-02-27] MEDS: TAMOXIFEN CITRATE 10 MG TABLET GT SCH (10:30)
[2021-02-27] MEDS: PANTOPRAZOLE 40 MG VIAL IV SCH (10:30)
[2021-02-27] MEDS: CHOLECALCIFEROL 1,000 UNIT TABLET (VIT D3) GT SCH (10:30)
[2021-02-27] MEDS: DOCUSATE SODIUM 100 MG CAPSULE PO SCH (10:31)
[2021-02-27] MEDS: LEVOTHYROXINE SODIUM 25 MCG TABLET GT SCH (10:31)
[2021-02-27] MEDS: MULTIVITAMINS,THERAGRAN 1 UDTAB TABLET GT SCH (10:31)
[2021-02-27] MEDS: CHLORHEXIDINE GLUCONATE 15 ML UDC MM SCH ×2 (10:34→16:15)
[2021-02-27] MEDS: MUPIROCIN OINT 2% 22 GM TUBE TP SCH (10:34)
[2021-02-27] MEDS: NYSTATIN TOP POWDER 15 GM BOTTLE TP SCH ×2 (10:34→16:14)
[2021-02-27] MEDS: PROSOURCE / PROSTAT (PYXIS) 30 ML UDC GT SCH ×2 (10:36→16:14)
[2021-02-27] MEDS: CALCIUM ACETATE 667 MG CAP/TAB GT SCH ×3 (10:38→17:48)
[2021-02-27] MEDS: ASPIRIN 81 MG TAB.CHEW GT SCH (10:38)
[2021-02-27 12:00] VITALS: BP 103/70
[2021-02-27 13:38] LABS: BAND % (MANUAL) 2 % (0.0-5.0); EOSINOPHILS % (MANUAL) 3 % (0-4); LYMPHOCYTES % (MANUAL) 6 % (16-48); MONOCYTES % (MANUAL) 13 % (0-11.0); NEUTROPHILS % (MANUAL) 76 (42-76)
[2021-02-27] MEDS ORDERED: Nepro GT (15:32)
[2021-02-27] MEDS ORDERED: LEVO25TA7 GT (15:32)
[2021-02-27] MEDS ORDERED: COLI1POW MC (15:32)
[2021-02-27] MEDS ORDERED: COLL30OI TP (15:32)
[2021-02-27 15:47] VITALS: BP 127/73
[2021-02-27] MEDS: INSULIN REGULAR, HUMAN 100 UNIT/ML 3 ML VIAL SQ PRN (17:21)
[2021-02-27] MEDS: INSULIN GLARGINE, 100 UNIT/ML CARTRIDGE SQ SCH (17:22)
== END 2021-02-27 20:18 | DRG 710 ==
LOC: ER 14:36 → TELE2 18:53 → ICU 02-21 17:58 → TELE2 02-21 18:48 → ICU 02-21 20:27 → TELE 02-23 14:01
PROVIDERS: ADMIT Nurse Practitioner Acute Care; ATTEND Nurse Practitioner Acute Care
PROC: 30233N1 Transfusion of Nonautologous Red Blood Cells into Peripheral Vein, Percutaneous Approach (ICD-10-PCS; principal; 2021-02-19)
PROC: 5A1955Z Respiratory Ventilation, Greater than 96 Consecutive Hours (ICD-10-PCS; 2021-02-19)
PROC: 5A1D70Z Performance of Urinary Filtration, Intermittent, Less than 6 Hours Per Day (ICD-10-PCS; 2021-02-19)
PROC: 05HD33Z Insertion of Infusion Device into Right Cephalic Vein, Percutaneous Approach (ICD-10-PCS; 2021-02-20)
PROC: 0KBV0ZZ Excision of Right Foot Muscle, Open Approach (ICD-10-PCS; 2021-02-24)
DX: A41.9 Sepsis, unspecified organism (principal); G92.8 Other toxic encephalopathy; I50.33 Acute on chronic diastolic (congestive) heart failure; J18.9 Pneumonia, unspecified organism; J96.11 Chronic respiratory failure with hypoxia; J96.12 Chronic respiratory failure with hypercapnia; D68.59 Other primary thrombophilia; Z99.11 Dependence on respirator [ventilator] status; Z93.0 Tracheostomy status; N18.6 End stage renal disease; E11.22 Type 2 diabetes mellitus with diabetic chronic kidney disease; K92.2 Gastrointestinal hemorrhage, unspecified; I69.354 Hemiplegia and hemiparesis following cerebral infarction affecting left non-dominant side; E11.40 Type 2 diabetes mellitus with diabetic neuropathy, unspecified; I13.2 Hypertensive heart and chronic kidney disease with heart failure and with stage 5 chronic kidney disease, or end stage renal disease; I48.91 Unspecified atrial fibrillation; E11.621 Type 2 diabetes mellitus with foot ulcer; D64.9 Anemia, unspecified; Z20.822 Contact with and (suspected) exposure to COVID-19; L97.519 Non-pressure chronic ulcer of other part of right foot with unspecified severity; Z85.3 Personal history of malignant neoplasm of breast; Z79.899 Other long term (current) drug therapy; Z88.1 Allergy status to other antibiotic agents; Z88.0 Allergy status to penicillin; Z79.51 Long term (current) use of inhaled steroids; Z79.4 Long term (current) use of insulin; Z79.82 Long term (current) use of aspirin; Z79.01 Long term (current) use of anticoagulants; R13.10 Dysphagia, unspecified; F41.9 Anxiety disorder, unspecified; Z93.1 Gastrostomy status; E03.9 Hypothyroidism, unspecified; L89.610 Pressure ulcer of right heel, unstageable; Z99.2 Dependence on renal dialysis; Z74.01 Bed confinement status; Z74.09 Other reduced mobility; T39.395A Adverse effect of other nonsteroidal anti-inflammatory drugs [NSAID], initial encounter; Y92.9 Unspecified place or not applicable
CPT/HCPCS: 31720; 36415; 36600; 70450-TC; 71045-TC; 80048-TC; 80076-TC; 80202-TC; 82140-TC; 82272-TC; 82803-TC; 82962-TC; 83735-TC; 84100-TC; 84443-TC; 84484-TC; 85025-TC; 85610-TC; 85730-TC; 86706; 86850-TC; 87040-TC; 87081-TC; 87340; 90935-TC; 94002-TC; 94003-TC; 94760-TC; 94799-TC; 99082-TC; A4216; A4623; A6253; A6403; A7526; C9113; C9803; G0378; G0480; J0692; J0770; J0885; J1815; J2270; J2405; J3370; J7030; J7050; J7060; P9016; P9047